=== PATIENT | female | born 1980 | race African-American/Black ===

== ENCOUNTER 2024-12-17 15:02 | Emergency (ER) | payer MEDICARE, MEDICAID ==
[~2024-12-17 15:02] MED LIST: Iopamidol 300 61% 100 ML VIAL FS ONE
[2024-12-17] MEDS ORDERED: Droperidol 5 MG/2 ML VIAL ONE (16:32)
[2024-12-17 16:43] LABS: #Basophils 0.04 10x3/uL (0.0-0.2); #Eosinophils 0.23 10x3/uL (0.0-0.5); #Monocytes 0.76 10x3/uL (0.0-1.1); #Neutrophils 4.73 10x3/uL (1.5-8.4); %Basophils 0.5 % (0.0-2.0); %Eosinophils 2.7 % (0.0-6.0); %Lymphocytes 31.8 % (18.0-47.0); %Monocytes 9.0 % (0.0-10.0); %Neutrophils 55.8 % (40.0-75.0); Hematocrit 34.7 % (34.9-44.5); Hemoglobin 11.5 g/dL (12.0-15.5); Mean Corpuscular Hemoglobin 30.2 pg (27.0-33.0); Mean Corpuscular Volume 91.1 fL (81.6-98.3); Platelet Count 290 10x3/uL (150-450); Red Blood Cell (RBC) Count 3.81 10x6/uL (3.90-5.03); White Blood Cell (WBC) Count 8.47 10x3/uL (3.5-10.5)
[2024-12-17 16:52] LABS: BHCG - Serum Negative (NEGATIVE); Pregs Control Background? CLEAR/WHITE (CLR/WHITE); Pregs Control Bar Appear? YES (CONTROL BAR)
[2024-12-17 17:01] LABS: ALT (SGPT) 11 U/L (Less than 34); AST (SGOT) 19 U/L (11-34); Albumin 4.0 g/dL (3.1-4.5); Alkaline Phosphatase 36 U/L (40-110); Anion Gap 13 mmol/L (10-20); BUN (Urea Nitrogen) 7 mg/dL (7.0-18.7); Bilirubin, Total 0.5 mg/dL (0.3-1.2); Calc. Creatinine Clearance 0 mL/min (70-130); Calcium 9.2 mg/dL (7.8-10.44); Carbon Dioxide 28 mmol/L (22-29); Chloride 102 mmol/L (98-107); Globulin 3.4 g/dL (2.4-3.5); Glucose 78 mg/dL (70-105); Lipase 38 U/L (8-78); Potassium 3.5 mmol/L (3.5-5.1); Sodium 139 mmol/L (136-145)
[2024-12-17 17:05] LABS: Troponin I Less than 0.010 ng/mL (< 0.028)
[2024-12-17] MEDS ORDERED: hydrALAZINE 20 MG/ML VIAL ONE (18:11)
== END 2024-12-17 19:06 | disposition home or self-care (01) ==
LOC: CSHERS 15:02
DX: R10.9 Unspecified abdominal pain (principal); I10 Essential (primary) hypertension
CPT/HCPCS: 74177; 80053; 83605; 83690; 84484; 84703; 85025; 85379; 87426; 93005; 96374; 96375; 99285; J0360; J1790; Q9967